=== PATIENT | female | born 1955 | race Caucasian/White ===

== ENCOUNTER → 2016-09-14 | Outpatient (CLI) | payer OTHER ==
[~2016-09-14] MED LIST: berberine PO
== END | disposition home or self-care (01) ==
LOC: CFH 09:56
PROVIDERS: ATTEND Internal Medicine Cardiovascular Disease
DX: I50.30 Unspecified diastolic (congestive) heart failure (principal); I08.1 Rheumatic disorders of both mitral and tricuspid valves; Z85.3 Personal history of malignant neoplasm of breast
CPT/HCPCS: 93306

== ENCOUNTER 2017-03-07 11:34 | Day surgery (SDC) | payer OTHER ==
[2017-03-04 09:22] VITALS: BP 155/102
[~2017-03-07] VITALS: Ht 165.1 cm; Wt 95.1 kg
[~2017-03-07 11:34] MED LIST changes: +CHLO25TA PO
[2017-03-07] MEDS ORDERED: LACTATED RINGERS 1,000 ML IV SCH (12:20)
[2017-03-07 12:22] VITALS: BP 155/102
[2017-03-07] MEDS ORDERED: PLEASE ENTER HEIGHT AND WEIGHT MC SCH (12:30)
[2017-03-07 12:43] LABS: HEMATOCRIT 46.3 % (34.6-47.8); HEMOGLOBIN 15.6 g/dL (11.7-16.4)
[2017-03-07] MEDS ORDERED: BUPIVACAINE/PF-EPI 0.25% 1:200K ONE ×2 (13:20→15:40)
[2017-03-07] MEDS ORDERED: FLUORESCEIN SODIUM 500 MG/5 ML ONE (13:20)
[2017-03-07] MEDS ORDERED: MIDAZOLAM 1 MG/ML, 2ML ONE (13:27)
[2017-03-07] MEDS ORDERED: FENTANYL PF 100 MCG/2ML ONE ×2 (13:28)
[2017-03-07] MEDS ORDERED: HEPARIN 1,000 UNITS/ML, 10ML ONE (13:58)
[2017-03-07] MEDS ORDERED: GLYCOPYRROLATE 0.2MG/1ML, 5ML ONE (14:09)
[2017-03-07] MEDS ORDERED: SUCCINYLCHOLINE 20 MG/ML, 10ML ONE (14:09)
[2017-03-07] MEDS ORDERED: KETOROLAC 30 MG/1 ML ONE (14:09)
[2017-03-07] MEDS ORDERED: DEXAMETHASONE 4 MG/ML, 1ML ONE (14:09)
[2017-03-07] MEDS ORDERED: PROPOFOL 10 MG/ML, 20ML ONE (14:09)
[2017-03-07] MEDS ORDERED: CEFAZOLIN 1,000 MG ONE (14:09)
[2017-03-07] MEDS ORDERED: ROCURONIUM 10 MG/ML ONE (14:09)
[2017-03-07] MEDS ORDERED: NEOSTIGMINE 1 MG/ML, 10ML ONE (14:09)
[2017-03-07] MEDS ORDERED: ONDANSETRON 2MG/ML, 2ML ONE (14:09)
[2017-03-07] MEDS ORDERED: METOPROLOL 1 MG/ML, 5ML IV PRN (16:00)
[2017-03-07] MEDS ORDERED: PROMETHAZINE 25 MG/ML, 1ML IV PRN (16:00)
[2017-03-07] MEDS ORDERED: HYDROcodone/APAP 7.5-325MG/15ML UDC PO PRN (16:00)
[2017-03-07] MEDS ORDERED: hydrALAzine 20 MG/ML, 1ML IV PRN (16:00)
[2017-03-07] MEDS ORDERED: MIDAZOLAM 1 MG/ML, 2ML IV PRN (16:00)
[2017-03-07] MEDS ORDERED: ONDANSETRON 2MG/ML, 2ML IVPush PRN (16:00)
[2017-03-07] MEDS ORDERED: FENTANYL PF 100 MCG/2ML IV PRN (16:00)
[2017-03-07] MEDS ORDERED: LABETALOL 5MG/ML, 20ML IV PRN (16:00)
[2017-03-07] MEDS ORDERED: ALBUTEROL SULFATE 2.5 MG/3 ML NPPB PRN (16:00)
[2017-03-07] MEDS ORDERED: ACETAMINOPHEN 325 MG TABLET PO PRN (16:00)
[2017-03-07] MEDS ORDERED: HYDROmorphone 1 MG/ML, 1ML IV PRN (16:00)
[2017-03-07] MEDS ORDERED: MEPERIDINE/PF 25MG/0.5ML IVPush PRN (16:00)
[2017-03-07] MEDS ORDERED: OXYcodone 5 MG/5 ML ORAL.SOL UDC PO PRN (16:00)
[2017-03-07] MEDS ORDERED: EPHEDRINE 50 MG/ML, 1ML IVPush PRN (16:00)
[2017-03-07] MEDS ORDERED: OXYcodone 5 MG/5 ML ORAL.SOL UDC ONE (16:01)
[2017-03-07] MEDS ORDERED: ACETAMINOPHEN 650 MG/20.3 ML UDC ONE (16:01)
[2017-03-07] MEDS ORDERED: ONDANSETRON 2MG/ML, 2ML IV PRN (18:00)
[2017-03-07] MEDS ORDERED: OXYcodone/APAP 7.5/325MG TABLET PO PRN (18:00)
[2017-03-07] MEDS ORDERED: MORPHINE SULFATE 4 MG/ML, 1ML IV PRN (18:00)
[2017-03-07] MEDS ORDERED: METOCLOPRAMIDE 10MG TABLET PO SCH (18:00)
== END 2017-03-07 20:32 | disposition home or self-care (01) ==
LOC: OUT 11:34 → 4NOR 17:34 → OUT 20:32
PROVIDERS: ATTEND Specialist
DX: N87.9 Dysplasia of cervix uteri, unspecified (principal); I10 Essential (primary) hypertension; E78.5 Hyperlipidemia, unspecified; Z15.01 Genetic susceptibility to malignant neoplasm of breast; Z98.890 Other specified postprocedural states
CPT/HCPCS: 36415; 58571; 71010; 85025; 85610; 85730; 86304; 86850; 86900; 86923; 88307; 93005; J0330; J0690; J1100; J1644; J1885; J2250; J2405; J2704; J2710; J3010; J7120; S2900; J3490

== ENCOUNTER 2020-11-13 10:29 | Outpatient (CLI) | payer OTHER ==
[2020-12-05] MEDS ORDERED: Berberine PO (09:23)
[2020-12-05] MEDS ORDERED: KRIL500C PO (09:23)
[2020-12-05] MEDS ORDERED: BLAC20TA PO (09:23)
[2020-12-05] MEDS ORDERED: MAGN500C9 PO (09:23)
[2020-12-05] MEDS ORDERED: IRON18TA PO (09:23)
[2020-12-05] MEDS ORDERED: MULT-449 PO (09:23)
[2020-12-05] MEDS ORDERED: GLUC15006 PO (09:23)
[2020-12-05] MEDS ORDERED: CHOL10003 PO (09:23)
[2020-12-05] MEDS ORDERED: LACT1CAP35 PO (09:23)
[2020-12-05] MEDS ORDERED: [UNRECOGNIZED DRUG - OTHER] PO (09:23)
== END 2020-11-13 23:59 | disposition home or self-care (01) ==
LOC: CFH 10:29
PROVIDERS: ATTEND Surgery
DX: N63.24 Unspecified lump in the left breast, lower inner quadrant (principal)
CPT/HCPCS: 76642

== ENCOUNTER → 2020-12-05 | Outpatient (CLI) | payer OTHER, MEDICARE ==
[~2020-12-05] MED LIST changes: +BLAC20TA PO; +Berberine PO; +CHOL10003 PO; +GLUC15006 PO; +IRON18TA PO; +KRIL500C PO; +LACT1CAP35 PO; +MAGN500C9 PO; +MULT-449 PO; +[UNRECOGNIZED DRUG - OTHER] PO
[2020-12-05 08:43] LABS: ALANINE AMINOTRANSFERASE 24 U/L (12-78); ALBUMIN 3.6 g/dL (3.4-5.0); ANION GAP 3 mmol/L (5-15); CALCIUM 8.9 mg/dL (8.5-10.1); CHLORIDE 109 mmol/L (98-107); CREATININE 0.93 mg/dL (0.55-1.02)
[2020-12-05 08:46] LABS: ALKALINE PHOSPHATASE 92 U/L (45-117); BILIRUBIN,TOTAL 0.7 mg/dL (0.2-1.0); TOTAL PROTEIN 7.2 g/dL (6.4-8.2)
== END | disposition home or self-care (01) ==
LOC: STAR 07:50
PROVIDERS: ATTEND Surgery
DX: Z01.818 Encounter for other preprocedural examination (principal); Z01.812 Encounter for preprocedural laboratory examination; N63.24 Unspecified lump in the left breast, lower inner quadrant; I44.7 Left bundle-branch block, unspecified; Z20.822 Contact with and (suspected) exposure to COVID-19
CPT/HCPCS: 36415; 80053; 93005; U0003; U0005

== ENCOUNTER 2020-12-11 06:25 | Day surgery (SDC) | payer MEDICARE, OTHER ==
[2020-12-05 07:59] VITALS: BP 140/98
[~2020-12-11] VITALS: Ht 165.1 cm; Wt 95.0 kg
[2020-12-11] MEDS ORDERED: CHLORHEXIDINE 15 ML UDC PO ONE (07:00)
[2020-12-11] MEDS ORDERED: EPINEPHRINE 1 MG/ML, 1ML ONE (07:16)
[2020-12-11] MEDS ORDERED: BUPIVACAINE/PF 0.5% ONE (07:16)
[2020-12-11] MEDS ORDERED: FENTANYL PF 100 MCG/2ML ONE (07:23)
[2020-12-11] MEDS ORDERED: MIDAZOLAM 1 MG/ML, 2ML ONE (07:23)
[2020-12-11] MEDS ORDERED: LACTATED RINGERS 1,000 ML IV SCH (07:30)
[2020-12-11] MEDS ORDERED: ONDA4TAB7 PO (09:14)
[2020-12-11] MEDS ORDERED: KETOROLAC 30 MG/1 ML IV PRN (09:30)
[2020-12-11] MEDS ORDERED: ACETAMINOPHEN 325 MG TABLET PO PRN (09:30)
[2020-12-11] MEDS ORDERED: PROMETHAZINE 25 MG/ML, 1ML IV PRN (09:30)
[2020-12-11] MEDS ORDERED: ALBUTEROL SULFATE 2.5 MG/3 ML NPPB PRN (09:30)
[2020-12-11] MEDS ORDERED: HYDROmorphone 2 MG/ML, 1ML IVPush PRN (09:30)
[2020-12-11] MEDS ORDERED: DIAZEPAM 5 MG/ML, 2ML IVPush PRN (09:30)
[2020-12-11] MEDS ORDERED: hydrALAzine 20 MG/ML, 1ML IV PRN (09:30)
[2020-12-11] MEDS ORDERED: OXYcodone 5 MG/5 ML ORAL.SOL UDC PO PRN (09:30)
[2020-12-11] MEDS ORDERED: MEPERIDINE/PF 25MG/0.5ML IVPush PRN (09:30)
[2020-12-11] MEDS ORDERED: LABETALOL 5MG/ML, 20ML IV PRN (09:30)
[2020-12-11] MEDS ORDERED: FENTANYL PF 100 MCG/2ML IV PRN (09:30)
[2020-12-11] MEDS ORDERED: SUCCINYLCHOLINE 20 MG/ML, 10ML ONE (09:35)
[2020-12-11] MEDS ORDERED: CEFAZOLIN 1,000 MG ONE (09:35)
[2020-12-11] MEDS ORDERED: ONDANSETRON 2MG/ML, 2ML ONE (09:35)
[2020-12-11] MEDS ORDERED: PROPOFOL 10 MG/ML, 20ML ONE (09:35)
[2020-12-11] MEDS ORDERED: GLYCOPYRROLATE 0.2MG/1ML, 5ML ONE (09:35)
[2020-12-11] MEDS ORDERED: NEOSTIGMINE 1 MG/ML, 10ML ONE (09:35)
[2020-12-11] MEDS ORDERED: ROCURONIUM 10MG/ML,5ML ONE (09:35)
== END 2020-12-11 11:00 | disposition home or self-care (01) ==
LOC: OUT 06:25
PROVIDERS: ATTEND Surgery
DX: D48.62 Neoplasm of uncertain behavior of left breast (principal); E66.9 Obesity, unspecified; Z68.33 Body mass index [BMI] 33.0-33.9, adult; Z79.899 Other long term (current) drug therapy; Z80.41 Family history of malignant neoplasm of ovary; Z80.0 Family history of malignant neoplasm of digestive organs
CPT/HCPCS: 19301; 88305; J0171; J0330; J0690; J2250; J2405; J2704; J2710; J3010; J7120

== ENCOUNTER → 2020-12-23 | Outpatient (CLI) | payer OTHER ==
[~2020-12-23] MED LIST changes: +OMNIPAQUE 350 MG/ML, 100ML BOTTLE ONE; +ONDA4TAB7 PO
== END | disposition home or self-care (01) ==
LOC: RAD 10:39
PROVIDERS: ATTEND Surgery
DX: C50.312 Malignant neoplasm of lower-inner quadrant of left female breast (principal)
CPT/HCPCS: 71260; 74177; 78306; A9503; Q9967

== ENCOUNTER → 2020-12-31 | Outpatient (CLI) | payer OTHER ==
[~2020-12-31] MED LIST changes: -OMNIPAQUE 350 MG/ML, 100ML BOTTLE ONE
== END | disposition home or self-care (01) ==
LOC: ROC 09:29
PROVIDERS: ATTEND Radiology Radiation Oncology
DX: C50.312 Malignant neoplasm of lower-inner quadrant of left female breast (principal); E66.9 Obesity, unspecified; Z68.33 Body mass index [BMI] 33.0-33.9, adult; Z17.0 Estrogen receptor positive status [ER+]
CPT/HCPCS: 99214; G0463

== ENCOUNTER 2021-01-08 11:35 | Day surgery (SDC) | payer OTHER ==
[~2021-01-08] VITALS: Ht 165.1 cm; Wt 92.4 kg
[~2021-01-08 11:35] MED LIST changes: -HYDR-2214 PO
[2021-01-08] MEDS ORDERED: MIDAZOLAM 1 MG/ML, 2ML ONE (11:43)
[2021-01-08] MEDS ORDERED: FENTANYL PF 250 MCG/5ML ONE (11:43)
[2021-01-08 11:53] VITALS: BP 173/90
[2021-01-08] MEDS ORDERED: hydrALAzine 20 MG/ML, 1ML IV PRN (12:00)
[2021-01-08] MEDS ORDERED: DIAZEPAM 5 MG/ML, 2ML IVPush PRN (12:00)
[2021-01-08] MEDS ORDERED: HYDROmorphone 1 MG/ML, 1ML INJ IVPush PRN (12:00)
[2021-01-08] MEDS ORDERED: FENTANYL PF 100 MCG/2ML IV PRN (12:00)
[2021-01-08] MEDS ORDERED: ONDANSETRON 2MG/ML, 2ML IVPush PRN (12:00)
[2021-01-08] MEDS ORDERED: MEPERIDINE/PF 25MG/0.5ML IVPush PRN (12:00)
[2021-01-08] MEDS ORDERED: LABETALOL 5MG/ML, 20ML IV PRN (12:00)
[2021-01-08] MEDS ORDERED: CHLORHEXIDINE 15 ML UDC ONE (12:09)
[2021-01-08] MEDS ORDERED: ACETAMINOPHEN 500 MG TABLET ONE (12:09)
[2021-01-08] MEDS ORDERED: SCOPOLAMINE 1MG PATCH TD ONE (12:09)
[2021-01-08] MEDS ORDERED: GLYCOPYRROLATE 0.2MG/1ML, 5ML ONE (12:29)
[2021-01-08] MEDS ORDERED: ACETAMINOPHEN 500 MG TABLET PO ONE (12:30)
[2021-01-08] MEDS ORDERED: SCOPOLAMINE 1MG PATCH TD SCH (12:30)
[2021-01-08] MEDS ORDERED: CHLORHEXIDINE 15 ML UDC PO ONE (12:30)
[2021-01-08] MEDS ORDERED: LACTATED RINGERS 1,000 ML IV SCH (12:30)
[2021-01-08] MEDS ORDERED: DEXAMETHASONE 4 MG/ML, 5ML ONE (12:45)
[2021-01-08] MEDS ORDERED: PROPOFOL 10 MG/ML, 20ML ONE (12:50)
[2021-01-08] MEDS ORDERED: ONDANSETRON 2MG/ML, 2ML ONE (12:51)
[2021-01-08] MEDS ORDERED: HEPARIN 1,000 UNITS/ML, 30ML ONE (12:51)
[2021-01-08] MEDS ORDERED: CEFAZOLIN 1,000 MG ONE ×2 (12:51)
[2021-01-08] MEDS ORDERED: ROCURONIUM 10MG/ML,5ML ONE (12:51)
[2021-01-08] MEDS ORDERED: LIDOCAINE-MPF 2% ,5ML ONE (12:51)
[2021-01-08] MEDS ORDERED: BUPIVACAINE/PF 0.5% ONE (12:57)
[2021-01-08] MEDS ORDERED: ISOSULFAN BLUE 10 MG/ML, 5ML IV ONE (13:15)
[2021-01-08] MEDS ORDERED: OXYcodone 5 MG/5 ML ORAL.SOL UDC ONE (14:32)
[2021-01-08] MEDS ORDERED: FENTANYL PF 100 MCG/2ML ONE (14:32)
[2021-01-08] MEDS ORDERED: HYDR-2214 PO (14:34)
[2021-01-08] MEDS ORDERED: ONDA4TAB7 PO (14:34)
[2021-01-08] MEDS: OXYcodone 5 MG/5 ML ORAL.SOL UDC PO PRN ×2 (14:35→14:40)
== END 2021-01-08 16:40 | disposition home or self-care (01) ==
LOC: OUT 11:35
PROVIDERS: ATTEND Surgery
DX: C50.312 Malignant neoplasm of lower-inner quadrant of left female breast (principal); N60.12 Diffuse cystic mastopathy of left breast; I44.7 Left bundle-branch block, unspecified; E66.9 Obesity, unspecified; Z17.0 Estrogen receptor positive status [ER+]; Z20.822 Contact with and (suspected) exposure to COVID-19; Z68.34 Body mass index [BMI] 34.0-34.9, adult; Z79.899 Other long term (current) drug therapy; Z80.3 Family history of malignant neoplasm of breast; Z80.0 Family history of malignant neoplasm of digestive organs
CPT/HCPCS: 19301; 36561; 38525; 71045; 77001; 87635; 88305; 88307; C1788; J0690; J1100; J1644; J2250; J2405; J2704; J3010

== ENCOUNTER → 2021-01-08 | Outpatient (CLI) | payer MEDICARE, OTHER ==
[~2021-01-08] MED LIST changes: +HYDR-2214 PO
== END | disposition home or self-care (01) ==
LOC: RAD 09:37
PROVIDERS: ATTEND Surgery
DX: Z15.01 Genetic susceptibility to malignant neoplasm of breast (principal); N63.20 Unspecified lump in the left breast, unspecified quadrant
CPT/HCPCS: 78195; A9541

== ENCOUNTER 2021-02-11 11:40 | Outpatient (CLI) | payer OTHER ==
[~2021-02-11 11:40] MED LIST changes: +HYDR-2214 PO
== END 2021-02-11 23:59 | disposition home or self-care (01) ==
LOC: CVU 11:40
PROVIDERS: ATTEND Internal Medicine Hematology & Oncology
DX: C50.812 Malignant neoplasm of overlapping sites of left female breast (principal); I08.0 Rheumatic disorders of both mitral and aortic valves
CPT/HCPCS: 93306; 93356